=== PATIENT | female | born 1945 | race Caucasian/White ===

== ENCOUNTER → 2017-06-15 | Outpatient (CLI) | payer OTHER ==
[~2017-06-15] MED LIST: AMBIEN10 M1 PO; ASPIR-LOW81 MG PO; CIPRO500 MG PO; ESCITALOPRAM OX10 MG PO; Ecotrin PO; Hyzaar 50-12.5 PO; METRONIDAZOLE500 MG PO; NORCO 7.5/321 TABLET PO; PHENERGAN25 MG PR; PROMETHAZINE HC25 M1 PO; ZESTORETIC,P1 TABLE2 PO
== END | disposition home or self-care (01) ==
DX: M17.12 Unilateral primary osteoarthritis, left knee (principal); R26.2 Difficulty in walking, not elsewhere classified; M25.562 Pain in left knee; M25.662 Stiffness of left knee, not elsewhere classified; M62.81 Muscle weakness (generalized)
CPT/HCPCS: 97110 GP; 97150 GO; 97161 GP; 97165 GO; G8978 GP; G8979 GP; G8980 GP; G8987 GO; G8988 GO; G8989 GO

== ENCOUNTER 2017-07-11 22:04 | Inpatient (IN) | payer OTHER ==
[~2017-07-11] VITALS: Ht 170.2 cm; Wt 99.3 kg
[~2017-07-11 22:04] MED LIST changes: +DICLOFENAC SOD100 MG PO; +HYDROCHLOROTH12.5 M3 PO; +IRON325 M1 PO; +LEXAPRO20 MG PO; +PROAIR HFA8.5 GM IH
[2017-07-12 08:11] VITALS: BP 136/65
[2017-07-12 14:12] VITALS: BP 119/57
[2017-07-12 15:21] VITALS: BP 120/59
[2017-07-12 17:52] VITALS: BP 114/57
[2017-07-12 20:32] VITALS: BP 124/73
[2017-07-13 00:07] VITALS: BP 129/78
[2017-07-13 04:10] VITALS: BP 127/72
[2017-07-13 06:56] LABS: HEMATOCRIT 32.4 % (36.0-46.0); MCV 87.6 FL (83-99)
[2017-07-13 07:47] LABS: ANION GAP 6 MEQ/L (2-14); CHLORIDE 105 MEQ/L (99-109); GFR ESTIMATE (CALCULATED) 58 mL/min/; GLUCOSE 148 mg/dL (70-99); SAMPLE HEMOLYSIS CHECK 0; SAMPLE ICTERIC CHECK 0; SAMPLE LIPEMIA CHECK 0; SODIUM 141 MEQ/L (136-147); UREA NITROGEN (BUN) 24 mg/dL (9-23)
[2017-07-13 08:05] VITALS: BP 129/60
[2017-07-13 15:45] VITALS: BP 116/55
[2017-07-13 19:53] VITALS: BP 147/68
[2017-07-14 00:09] VITALS: BP 130/68
[2017-07-14 04:30] VITALS: BP 135/75
[2017-07-14 06:48] LABS: HEMATOCRIT 30.6 % (36.0-46.0)
[2017-07-14 08:00] VITALS: BP 110/59
[2017-07-14] MEDS ORDERED: SENNA PLUS TAB1 EACH PO (08:36)
[2017-07-14] MEDS ORDERED: ENDOCET 5-3251 EACH PO (08:37)
[2017-07-14] MEDS ORDERED: ELIQUIS2.5 MG PO (08:37)
[2017-07-14 09:24] VITALS: BP 110/59
[2017-07-14 12:00] VITALS: BP 108/53
== END 2017-07-14 14:15 | disposition home or self-care (01) | DRG 470 ==
LOC: ENRESERV 22:04 → 3WEST 07-12 07:31 → 2SOUTH 07-12 07:31 → 3WEST 07-12 14:02 → 2SOUTH 07-12 14:30 → 3WEST 07-14 14:15
PROVIDERS: Orthopaedic Surgery
PROC: 0SRD0J9 Replacement of Left Knee Joint with Synthetic Substitute, Cemented, Open Approach (ICD-10-PCS; principal; 2017-07-12)
DX: M17.12 Unilateral primary osteoarthritis, left knee (principal); F17.210 Nicotine dependence, cigarettes, uncomplicated; I10 Essential (primary) hypertension; F41.9 Anxiety disorder, unspecified; J45.909 Unspecified asthma, uncomplicated; F43.21 Adjustment disorder with depressed mood; L40.9 Psoriasis, unspecified; K80.20 Calculus of gallbladder without cholecystitis without obstruction; Z85.038 Personal history of other malignant neoplasm of large intestine; Z79.82 Long term (current) use of aspirin; Z90.710 Acquired absence of both cervix and uterus; Z83.3 Family history of diabetes mellitus; Z82.3 Family history of stroke; Z80.42 Family history of malignant neoplasm of prostate
CPT/HCPCS: 80048; 85014; 85018; 94640; 94640 76; 94799; 99202; C1713; J0131; J0690; J1100; J1885; J2250; J2405; J3010; J7050; J7120

== ENCOUNTER 2017-11-06 13:10 | Emergency (ER) | payer OTHER ==
[~2017-11-06] VITALS: Ht 170.2 cm; Wt 101.4 kg
[~2017-11-06 13:10] MED LIST changes: +ELIQUIS2.5 MG PO; +ENDOCET 5-3251 EACH PO; +SENNA PLUS TAB1 EACH PO
[2017-11-06] MEDS ORDERED: PREDNISONE10 MG PO (16:11)
[2017-11-06] MEDS ORDERED: ULTRAM50 MG PO (16:11)
[2017-11-06 16:21] VITALS: BP 183/87
== END 2017-11-06 16:22 | disposition home or self-care (01) ==
LOC: EME 13:10
DX: M19.042 Primary osteoarthritis, left hand (principal); Z96.659 Presence of unspecified artificial knee joint
CPT/HCPCS: 72040; 73130; 99281; 99284; J1885; J7512